=== PATIENT | female | born 1970 | race Hispanic/Latino ===

== ENCOUNTER 2020-08-12 12:22 | Emergency (ER) | payer OTHER ==
[2020-08-12 12:45] VITALS: BP 93/65
--- NOTE | 2020-08-12 14:09 | Emergency Department Report ---
- General Chief Complaint: Wound/Laceration Stated Complaint: LAC RT HAND Time Seen by Provider: 08/12/20 13:10 Source: patient Mode of arrival: Ambulatory Limitations: No Limitations - History of Present Illness Initial Comments: 50-year-old female presents to the ER today with complaints of laceration to her right hand. She states that she was cleaning a vase last visiting her mom did not realize that the vase had a broken piece at the top in excellently cut in the webspace between her right thumb and her right index finger. She states that this occurred around 1130 this morning. She reports pain mainly around the laceration site. She is up-to-date on her tetanus. She reports no other symptoms at this time. -: Sudden, days(s) (Today) - Related Data Previous Rx's Medication Instructions Recorded Last Taken Type Acetaminophen/Codeine [Tylenol 1 tab PO Q6H PRN #12 tab 08/12/20 Unknown Rx /Codeine # 3 tab] Ibuprofen [Motrin] 600 mg PO Q8H PRN #30 tablet 08/12/20 Unknown Rx Allergies Allergy/AdvReac Type Severity Reaction Status Date / Time No Known Allergies Allergy Unverified 08/12/20 12:41 ED Review of Systems ROS: Stated complaint: LAC RT HAND Other details as noted in HPI Comment: All other systems reviewed and negative Skin: other (Laceration to right hand) ED Past Medical Hx - Past Medical History Previous Medical History?: No Additional medical history: carpel tunnel , right hand ring finger trigger finger - Surgical History Past Surgical History?: Yes Hx Cholecystectomy: Yes Additional Surgical History: right hand surgery, right hand ring finger trigger finger, right hand carpel tunnel, Torn rectum surgery, Basal cell skin tag @ chest - Social History Smoking Status: Never Smoker Substance Use Type: None - Medications Home Medications: Home Medications Medication Instructions Recorded Confirmed Last Taken Type Acetaminophen/Codeine [Tylenol 1 tab PO Q6H PRN #12 tab 08/12/20 Unknown Rx /Codeine # 3 tab] Ibuprofen [Motrin] 600 mg PO Q8H PRN #30 tablet 08/12/20 Unknown Rx ED Physical Exam - General Limitations: No Limitations General appearance: alert, in no apparent distress - Head Head exam: Present: atraumatic, normocephalic, normal inspection - ENT ENT exam: Present: normal exam, mucous membranes moist - Respiratory Respiratory exam: Present: normal lung sounds bilaterally. Absent: respiratory distress - Cardiovascular Cardiovascular Exam: Present: regular rate, normal rhythm, normal heart sounds - Expanded Upper Extremity Exam Right Hand Wrist exam: Present: full ROM (Full ROM of thumb and index finger), tenderness (mainly around the laceration which is web space of thumb and index finger), laceration (Deep laceration measuring about 3 cm noted in the webspace of t right index finger and right thumb. No apparent muscle involvement. No apparent foreign body. No apparent tendon involvement.). Absent: swelling, abrasion, ecchymosis, deformity, crepidus, dislocation, erythema, amputation, nail avulsion, subungual hematoma Neurosensory exam: Present: radial nerve intact, ulnar nerve intact, median nerve intact Vascular: Present: normal capillary refill. Absent: vascular compromise - Neurological Exam Neurological exam: Present: alert, oriented X3, CN II-XII intact, normal gait - Psychiatric Psychiatric exam: Present: normal affect, normal mood ED Course Vital Signs 08/12/20 12:42 Temperature 98.6 F Pulse Rate 69 Respiratory 20 Rate Blood Pressure 93/65 O2 Sat by Pulse 96 Oximetry - Laceration /Wound Repair Right Hand Wound Location: upper extremity (webspace between thumb and index finger) Wound's Depth, Shape: superficial, linear Wound Explored: clean Irrigated w/ Saline (ccs): 30 Betadine Prep?: No Anesthesia: 1% Lidocaine Volume Anesthetic (ccs): 5 Wound Repaired With: sutures Suture Size/Type: 4:0, proline Number of Sutures: 7 Layer Closure?: No Sterile Dressing Applied?: Yes Progress: Patient tolerated procedure well without complications. ED Medical Decision Making - Radiology Data Radiology results: report reviewed interpreted by me: Patient: FARRAH CLARK MR#: [id number] : 1970 Acct:[id number] Age/Sex: 50 / F ADM Date: 08/12/20 Loc: ED Attending Dr: Ordering Physician: DORON FULLER Date of Service: 08/12/20 Procedure(s): XR hand 3+V RT Accession Number(s): [id number] cc: DORON FULLER Fluoro Time In Minutes: RIGHT HAND 3 VIEW(S) INDICATION / CLINICAL INFORMATION: hand lac from glass vase COMPARISON: None available. FINDINGS: BONES / JOINT(S): No acute fracture or subluxation. No significant arthritis. SOFT TISSUES: Possible soft tissue laceration in the webspace between the thumb and index finger. No radiopaque foreign body. ADDITIONAL FINDINGS: None. Signer Name: Ritchie Perez MD Signed: 08/12/2020 2:34 PM Workstation Name: [id number] Transcribed By: DT Dictated By: Aristeo Perez MD Electronically Authenticated By: Aristeo Perez MD Signed Date/Time: 08/12/201433 DD/ 33 TD/TT: Critical care attestation.: If time is entered above; I have spent that time in minutes in the direct care of this critically ill patient, excluding procedure time. ED Disposition Clinical Impression: Hand laceration Disposition: DC- TO HOME OR SELFCARE Is pt being admited?: No Does the pt Need Aspirin: No Condition: Stable Instructions: Laceration Care, Adult, [id number], Sutures, [place], or Adhesive Wound Closure, Stmr-of-Bcgo Additional Instructions: Keep the wound clean daily with soap and water. Do not use alcohol or peroxide. Dry well after each cleaning. Apply a thin layer of Neosporin after each cleaning. Then apply a dressing. Do this daily until its time to have the stitches removed. Stitches will need to be removed in the next 10 to 12 days. Return to the ER or follow-up with your primary care doctor for suture removal. Return sooner if there is any signs and symptoms of infection such as pus drainage, increasing redness or pain. Prescriptions: Ibuprofen [Motrin] 600 mg PO Q8H PRN #30 tablet PRN Reason: Pain Acetaminophen/Codeine [Tylenol /Codeine # 3 tab] 1 tab PO Q6H PRN #12 tab PRN Reason: Pain Referrals: PRIMARY CARE, [Primary Care Provider] - 3-5 Days Time of Disposition: 15:28
[2020-08-12] MEDS ORDERED: ACETAMINOPHEN 325 MG TAB PO ONE (14:10)
--- NOTE | 2020-08-12 14:39 | XRay Report ---
RIGHT HAND 3 VIEW(S) INDICATION / CLINICAL INFORMATION: hand lac from glass vase COMPARISON: None available. FINDINGS: BONES / JOINT(S): No acute fracture or subluxation. No significant arthritis. SOFT TISSUES: Possible soft tissue laceration in the webspace between the thumb and index finger. No radiopaque foreign body. ADDITIONAL FINDINGS: None. Signer Name: Ritchie Perez MD Signed: 08/12/2020 2:34 PM Workstation Name: [id number]
[2020-08-12] MEDS ORDERED: LIDOCAINE (1%) 10 MG/1 ML VIAL 20 ML MDV INFILTRATI ONE (14:59)
[2020-08-12] MEDS ORDERED: NEOMY 3.5 MG/BACIT 400 UNITS/POLY B 5000 UNITS/GM OINT PACKET TP ONE (15:31)
== END 2020-08-12 15:42 | disposition home or self-care (01) ==
LOC: ED 12:22
DX: S61.411A Laceration without foreign body of right hand, initial encounter (principal); Z79.899 Other long term (current) drug therapy; W26.8XXA Contact with other sharp object(s), not elsewhere classified, initial encounter; Y93.89 Activity, other specified; Y92.89 Other specified places as the place of occurrence of the external cause; Y99.8 Other external cause status
CPT/HCPCS: 12002; 73130; 99283; A6250